=== PATIENT | male | born 1935 | race Caucasian/White ===

== ENCOUNTER 2018-01-03 03:09 | Inpatient (IN) | payer MEDICARE ==
[2018-01-03] MEDS ORDERED: Ondansetron HCl/PF 4 MG/2 ML Vial IVP PRN (05:11)
[2018-01-03] MEDS ORDERED: Milk Of Magnesia 30 ML UDCUP PO PRN (05:11)
[2018-01-03] MEDS ORDERED: Acetaminophen 325 MG TAB PO PRN (05:12)
[2018-01-03 05:32] LABS: Troponin I 0.027 ng/mL (< 0.028)
[2018-01-03 05:35] VITALS: BMI 23.8
--- NOTE | 2018-01-03 07:49 | HP ---
PRIMARY CARE PHYSICIAN: Steffanie . PRESENTING COMPLAINT: Shortness of breath. HISTORY OF PRESENT ILLNESS: An 82-year-old male with a history of viral cardiomyopathy with ejection fraction of about 20%, history of aortic aneurysm status post repair, Johnson's disease, hypertension, and atrial fibrillation who presented to the emergency room with acute onset shortness of breath which started around midnight. He was reading a magazine when he suddenly became short of breath, initially thought it would pass and he went outside to get some fresh air, but symptoms did not improve. He denies chest pain, back pain, palpitations, lower extremity edema, PND or orthopnea. He usually takes 20 mg of furosemide, but states he has not taken it for about 3 days. He also felt some wheezing, but no other symptoms. No abdominal or urinary symptoms. PAST MEDICAL HISTORY: As stated in the HPI. PAST SURGICAL HISTORY: Cholecystectomy, aortic aneurysm repair. FAMILY HISTORY: Reviewed and noncontributory. SOCIAL HISTORY: Does not drink alcohol, smoke cigarettes or use illicit drugs. ALLERGIES: None. HOME MEDICATIONS: Carvedilol 6.25 mg b.i.d., losartan 25 mg daily, terazosin 5 mg daily, Furosemide 20 mg daily. Pantoprazole 40 mg daily. Amiodarone 200 mg daily, aspirin 81 mg daily. REVIEW OF SYSTEMS: CONSTITUTIONAL: Negative. HEENT: Negative. CARDIOVASCULAR: Positive for shortness of breath, otherwise negative. RESPIRATORY: Shortness of breath. Denies cough, sputum production. ABDOMEN: Negative. : Negative. MUSCULOSKELETAL: Negative. SKIN: Negative. NEUROLOGIC: Negative. HEME/LYMPHATIC: Negative. PSYCHIATRIC: Negative. ALLERGY/IMMUNOLOGY: Negative. PHYSICAL EXAMINATION: VITAL SIGNS: Initial vital signs on arrival was blood pressure 180/112 with a pulse rate of 110, respiratory rate of 32, and a temperature of 97.1 degree Fahrenheit. He was satting at 78% on a nonrebreather. GENERAL: Not in acute distress, sitting comfortably in bed. HEENT: Normocephalic, atraumatic. Not pale, anicteric. Moist mucous membranes. PERRLA, EOMI. RESPIRATORY: Reveals bilateral crackles initially at presentation, he had crackles throughout his lungs and increased work of breathing and required a nonrebreather. CARDIOVASCULAR: S1 and S2, only. Regular rate and rhythm. No murmurs, rubs or gallops. ABDOMEN: Soft, nontender, nondistended. Bowel sounds positive. No hepatosplenomegaly. EXTREMITIES: No edema. No muscular or skeletal abnormalities. NEUROLOGIC: Alert and well oriented to time, place and person. No murmurs, rubs or gallops. SKIN: Warm, dry, well-perfused. No rashes or lesions. PSYCHIATRIC: Normal mood and affect. LABORATORY DATA: EKG at presentation shows sinus tachycardia with no signs of acute ischemia. Chest x-ray showed vascular congestion. CBC was largely unremarkable. CMP showed elevated creatinine, unclear if he has a prior history of CKD as previous creatinines were elevated as well. D-dimer was elevated at 1.1. He then had a CTA chest, which was negative for clots, but showed bilateral pleural effusion. ASSESSMENT AND PLAN: 1. Hypertensive emergency. Blood pressure was markedly elevated on arrival, and he had some pulmonary edema. He was started on a nonrebreather and given 1 dose of IV furosemide with marked improvement. We will continue IV diuresis, monitor in the Critical Care Unit and wean off oxygen supplementation. He was also started on IV nitroglycerin which will be eventually weaned off as blood pressure has improved. 2. Congestive heart failure. The patient with reported history of low ejection fraction and has not been compliant with his furosemide which resulted in him being admitted for pulmonary edema. We will continue his home medications of Coreg and losartan as he has been compliant. We will continue IV diuresis. Get Cardiology consult. Monitor his vital signs. We will also consult Cardiology, monitor ins and outs as well. Trend troponin. 3. Hypertension. We will resume his home medications and wean off nitroglycerin drip. 4. Atrial fibrillation. The patient is well controlled and is on aspirin as outpatient. We will continue aspirin and monitor his heart rate. 5. Acute kidney injury, unclear if he has chronic kidney disease as well, but this could be a cardiorenal syndrome. We will monitor creatinine while he is being diuresed. CODE STATUS: FULL CODE. MTDD
--- NOTE | 2018-01-03 08:01 | CT ---
PRELIMINARY REPORT/[facility]/EMERGENCY AFTER HOURS PROCEDURE: EXAM: CT Angiography Chest With Intravenous Contrast EXAM DATE/TIME: Exam ordered 01/03/2018 4:02 AM CLINICAL HISTORY: 82 years old, male; Signs and symptoms; Dyspnea and shortness of breath; Patient HX: 82 yo wm pmh vir al cardiomyopathy. Presents with sudden onset SOB that started while he was reading in bed this eveni ng. states she checked his BP and noted it was 190s/110s. Went to foley er and found BP still elevated. Cxr consistent with pulmonary edema. Started on nitro drip. At time of arrival, patient st ates breathing improved. Pressure resolving TECHNIQUE: Axial computed tomographic angiography images of the chest with intravenous contrast using pulmonary embolism protocol. COMPARISON: No relevant prior studies available. FINDINGS: Pulmonary arteries: Unremarkable. No pulmonary embolism. Aorta: No acute findings. No thoracic aortic aneurysm. Lungs: Smooth interlobular septal thickening compatible with hydrostatic interstitial pulmonary edema /CHF. No mass. Pleural space: Small bilateral pleural effusion. No pneumothorax. Heart: Cardiomegaly. No significant pericardial effusion. No evidence of RV dysfunction. Mediastinum: Esophagus is unremarkable. Bones/joints: No acute fracture. No dislocation. Soft tissues: Unremarkable. Lymph nodes: Unremarkable. No enlarged lymph nodes. IMPRESSION: Hydrostatic interstitial pulmonary edema/CHF with small bilateral pleural effusions. Thank you for allowing us to participate in the care of your patient. Dictated and Authenticated by: Sukhdev Newell MD 01/03/2018 4:36 AM Central Time ([place] & [place]) FINAL REPORT CT ANGIOGRAM CHEST WITH CONTRAST: HISTORY: Dyspnea. Viral cardiomyopathy. Shortness of breath. COMPARISON: CT of the chest 07/11/17. FINDINGS: CT angiogram chest was performed after the intravenous administration of contrast. Three-D rendering is provided. Findings and impression are concordant with the preliminary report. POS: [facility]
[2018-01-03 08:19] LABS: Troponin I 0.033 ng/mL (< 0.028)
[2018-01-03] MEDS ORDERED: Heparin 5,000 UNITS/ML VIAL SC SCH (09:00)
[2018-01-03] MEDS ORDERED: Docusate 100 MG CAP PO SCH (09:00)
[2018-01-03] MEDS ORDERED: Carvedilol 6.25 MG TAB PO SCH (09:00)
--- NOTE | 2018-01-03 11:29 | CON ---
DATE OF CONSULTATION: 01/03/2018 SERVICE: Pulmonary Medicine. REASON FOR CONSULTATION: ICU patient. HISTORY OF PRESENT ILLNESS: The patient is an 82-year-old white male with past medical history significant for taking Lasix. He did not take it on Tuesday, because he went golfing. He did not take on Tuesday, because he went to [place]. He missed his dose on Tuesday morning. Either way, that evening, he went to bed. He was reading a book and felt a little bit short-winded. He thought it was odd. He did not have any infectious prodrome. A couple of hours later, he woke up acutely short of breath. He came to the emergency department, and by the time he got there, he had severe dyspnea. His blood pressures were noted to be elevated. They gave him a dose of Lasix. Overnight, he micturated quite well, and his blood pressure is under much better control. He has been weaned off of oxygen already and feels like he has returned to his usual state of health. Throughout this event, he had no chest discomfort or palpitations. PAST MEDICAL HISTORY: 1. Chronic systolic heart failure with an EF of 20%, secondary to a viral illness. 2. Aortic aneurysm, status post repair. 3. Johnson's disease. 4. Hypertension. 5. Atrial fibrillation. PAST SURGICAL HISTORY: 1. Cholecystectomy. 2. Aortic aneurysm repair. FAMILY HISTORY: Noncontributory. SOCIAL HISTORY: Negative for alcohol, tobacco, or illicit drug use. ALLERGIES: No known drug allergies. MEDICATIONS: List of his home medications and inpatient medications were reviewed. Multiple small updates were made. REVIEW OF SYSTEMS: General, head, ears, eyes, nose, throat, cardiovascular, respiratory, GI, , musculoskeletal, neurologic, and skin is negative except as mentioned in the HPI. PHYSICAL EXAMINATION: VITAL SIGNS: Afebrile, pulse is 67, blood pressure 122/68, respirations 22, saturation 96 on room air. GENERAL: Patient is awake and alert, in no apparent distress. LUNGS: Excellent air entry. Dependent crackles are present with no prolonged expiratory phase, wheezing, or rhonchi. HEART: Normal rate, regular. ABDOMEN: Soft, nontender, nondistended. Bowel sounds are positive. MUSCULOSKELETAL: No cyanosis or clubbing. There is no pitting in the bilateral lower extremities. NEUROLOGIC: Grossly nonfocal. LABORATORY DATA: WBC 6.7, hemoglobin 14.0, platelets 142,000. D-dimer 1.16. PH 7.31, pCO2 of 56, pO2 of 40. Creatinine 1.34. Basic metabolic profile is, otherwise, unremarkable. BNP is elevated at 713, troponin 0.33, and trending upward. Lactate 1.2. IMAGING: CTA of the thorax demonstrates no evidence of a pulmonary embolism. Interstitial pulmonary edema, ground-glass opacifications more predominantly displayed in the dependent regions of the lungs. There are also very small bilateral pleural effusions evident. LV size is enlarged. RV remains small. Left atrium is also generous. Chest x-ray demonstrates interstitial infiltrates throughout bilateral lung frazier. There are some overt consolidating-type changes at the right base. Fluid is in the fissure. Cephalization is noted. ASSESSMENT: 1. Acute hypoxic respiratory failure. 2. Acute on chronic systolic heart failure. 3. Non-ST elevation myocardial infarction. 4. Chronic kidney disease, currently near baseline. DISCUSSION AND PLAN: The patient is really doing well from a respiratory perspective. He is already on room air. We will transition him over to telemetry. From a purely respiratory standpoint, he can go home today if Cardiology signs off on him and his troponin is going down this afternoon. We will repeat a level in roughly 6 hours to make certain the stress on his heart is off. I will give him 1 more dose of Lasix as I am still hearing crackles in the lungs. If he is here tomorrow, I will get a potassium and a magnesium. 70 minutes have been devoted to this patient in various activities. I personally reviewed all imaging studies and laboratory data noted within this document. For fifty percent of this time, I was interacting with the patient at the bedside or coordinating care with the care team. For the remainder of the time I was immediately available to the patient in the hospital unit. NICOLASA
[2018-01-03 13:31] VITALS: TEMP 97.5
--- NOTE | 2018-01-03 13:33 | CON ---
DATE OF CONSULTATION: 01/03/2018 REASON FOR CONSULTATION: Heart failure. HISTORY OF PRESENT ILLNESS: Mr. Whitfield is a pleasant 82-year-old white gentleman who comes to the [facility] for shortness of breath. He has a diagnosis of nonischemic cardiomyopathy. He has a cardiolo gist in [place] who he sees very regularly and is scheduled to see in March of this year. He has an E F of about 20%. He tells me that since his diagnosis of which was a couple years ago, his heart func tion has improved to the point where he was told he did not need a defibrillator or anything of that sort. He has had an aortic aneurysm repaired in the past as well. He came in because he usually alejandro es Lasix every morning. However, for last 3 days before admission, he had to go places so he decided to not take it as he would not be able to be without having to urinate and he had to do this. So af ter the third day, he became so short of breath and he had to come in for evaluation. He was given o ne dose of IV Lasix and he is much better today. He tells me he is back to normal. He is not short of breath. He is not requiring any supplemental oxygenation. PAST MEDICAL HISTORY: 1. Nonischemic cardiomyopathy. 2. Aortic aneurysm status post repair. 3. Johnson's esophagus. 4. Hypertension. 5. History of atrial fibrillation in the past. PAST SURGICAL HISTORY: 1. Cholecystectomy. 2. Aortic aneurysm repair. FAMILY HISTORY: Noncontributory. SOCIAL HISTORY: No alcohol, tobacco or drugs. ALLERGIES: No known drug allergies. OUTPATIENT MEDICATIONS: 1. Carvedilol 6.25 mg b.i.d. 2. Losartan 25 mg a day. 3. Terazosin 5 mg a day. 4. Furosemide 10 mg a day. 5. Pantoprazole 40 mg a day. 6. Amiodarone 200 mg a day. 7. Aspirin 81 a day. REVIEW OF SYSTEMS: A 12 point review of systems was done and is all negative unless stated in the hi story of present illness. PHYSICAL EXAMINATION: VITAL SIGNS: Temperature 97.6, pulse 62, respiratory rate 17, satting 95% on room air, blood pressur e 126/71. GENERAL: Awake, alert and oriented x3, in no distress. HEENT: Normocephalic, atraumatic. NECK: Supple. LUNGS: Lungs are clear. CARDIOVASCULAR: S1, S2, no S3, S4, no murmurs or rubs. ABDOMEN: Soft, positive bowel sounds. EXTREMITIES: No edema. SKIN: Warm and dry. LABORATORY WORK: Reviewed. EKG was reviewed. CT of the thorax was reviewed. ASSESSMENT AND PLAN: 1. Acute on chronic systolic heart failure. 2. Nonischemic cardiomyopathy. 3. History of aortic aneurysm with repair. Plan: 1. He seems euvolemic and well compensated now. He probably is back to baseline and should be able to be discharged home. He will continue taking his 20 p.o. Lasix and he will follow up with his [facility] asphalt plant worker in the next 2 weeks as he will get an appointment sooner than March. 2. He will discuss with them anticoagulation given his atrial fibrillation; however, he has been lashonda d the aspirin alone is what he is going to get. He has discussed it with his asphalt plant worker. Thank you for letting us participate in the care of your patient. We will sign off. Please call kalani moore any questions.
[2018-01-03] MEDS ORDERED: Furosemide 40 MG/4 ML VIAL SLOW IVP SCH (14:00)
--- NOTE | 2018-01-03 14:49 | DIS ---
DATE OF ADMISSION: 01/03/2018 DATE OF DISCHARGE: 01/03/2018 PRIMARY CARE PHYSICIAN: Steffanie Barclay NP. DISCHARGE DIAGNOSES: 1. Hypertensive urgency. 2. Acute shortness of breath. 3. Paroxysmal atrial fibrillation. 4. History of aortic aneurysm. 5. Johnson's esophagus. 6. Hypertension, essential. 7. Nonischemic, viral, cardiomyopathy, ejection fraction around 20%. CONSULTATIONS: 1. Cardiology, Dr. Michael Chew. 2. Pulmonary Critical Care, Dr. Ulysses Gallegos. HOSPITAL COURSE: Mr. Whitfield is an 82-year-old white male with the above history, who presented to [facility] emergency department for shortness of breath. He has been out of his Lasix and had not taken it in a day or two. He had some dyspnea on exertion without PND, orthopnea, lower extremity edema. In [facility] emergency department, he was noted to have blood pressure 180/112 and a pulse of 110. His temperat ure was 97.1. His pulse was 78% on nonrebreather. A chest x-ray, which showed pulmonary vascular co ngestion. We were called for admission. During hospital course, the patient was seen and examined b rosita Stevenson and admitted to the Intermediate Care Unit. He was restarted on IV Lasix. He was con tinued on regular home medications. The patient's blood pressure improved quickly and remained normal from 03/23/2017 until the time of d ischarge. He was seen by Cardiology, cleared for discharge with outpatient followup, recommended continued regu lar medications, seen by Pulmonary Critical Care with the same recommendations. He was stable for discharge with outpatient followup. PHYSICAL EXAMINATION: The patient was seen and examined on the day of discharge. DISCHARGE PLAN AND DISPOSITION: Were discussed with the patient [id number] at the bedside. DISCHARGE MEDICATIONS: 1. Amiodarone 200 mg p.o. daily. 2. Aspirin 81 mg daily. 3. Carvedilol 6.25 mg p.o. b.i.d. 4. Lasix 20 mg daily. 5. Losartan 25 mg daily. 6. Protonix 40 mg daily. 7. Terazosin 5 mg p.o. daily. FOLLOWUP APPOINTMENTS: 1. Primary care physician within a week. 2. Operations Vice President as scheduled. DISCHARGE ACTIVITY: Per cardiopulmonary limits. DISCHARGE DIET: Heart healthy diet recommended. DISCHARGE CONDITION: Stable. DISPOSITION: To be discharged home in a private vehicle.
[2018-01-03 15:19] VITALS: BP 153/73
[2018-01-03] MEDS ORDERED: ISOVUE-370 76%-LOCM 1 ML ONE (16:17)
[2018-01-03] MEDS ORDERED: Terazosin HCl 5 MG CAP PO SCH (21:00)
[2018-01-04] MEDS ORDERED: Losartan 25 MG TAB PO SCH (09:00)
[2018-01-04] MEDS ORDERED: Amiodarone 200 MG TAB PO SCH (09:00)
[2018-01-05] MEDS ORDERED: FLU VACC TS2017-18 (>65YR) 0.5 ML SYRINGE IM ONE (09:00)
== END 2018-01-03 14:41 | disposition home or self-care (01) | DRG 280 ==
LOC: ERS 03:09 → CCU 05:29
PROVIDERS: ADMIT Internal Medicine; ATTEND Internal Medicine
DX: I13.0 Hypertensive heart and chronic kidney disease with heart failure and stage 1 through stage 4 chronic kidney disease, or unspecified chronic kidney disease (principal); J96.01 Acute respiratory failure with hypoxia; I21.4 Non-ST elevation (NSTEMI) myocardial infarction; I50.23 Acute on chronic systolic (congestive) heart failure; I42.8 Other cardiomyopathies; I48.0 Paroxysmal atrial fibrillation; I16.0 Hypertensive urgency; N18.9 Chronic kidney disease, unspecified; Z91.14 Patient's other noncompliance with medication regimen
CPT/HCPCS: 36415; 71275; 93005; 93798; A4216; J1644

== ENCOUNTER 2018-01-10 12:14 | Outpatient (CLI) | payer MEDICARE ==
[2018-01-10 14:33] LABS: Bilirubin Negative (Negative); Blood, Urine Negative (Negative); Clarity CLEAR (Clear); Glucose, Urine (Dipstick) Negative (Negative); Leukocyte Negative (Negative); Nitrite Negative (Negative); Protein, Urine (Dipstick) Negative (Neg-Trace); Specific Gravity, Urine 1.018 (1.002-1.036)
[2018-01-10 14:39] LABS: Prothrombin Time 13.6 SEC (12.0-14.7)
[2018-01-10 14:41] LABS: Bacteria/HPF None Seen HPF (None Seen); Hyaline Casts/LPF 0-3 HYALINE CAST LPF (0-3 Hyaline); Pathc Cast-AUWi Flag 0.13 (0-2.49); RBC/HPF 0-3 HPF (0-3); Squamous Epithelial None Seen HPF (0-3); WBC/HPF None Seen HPF (0-3)
[2018-01-10 14:52] LABS: Anion Gap 12 mmol/L (10-20); BUN (Urea Nitrogen) 29 mg/dL (8.4-25.7); Calc. Creatinine Clearance 0 mL/min (70-130); Calcium 9.4 mg/dL (7.8-10.44); Carbon Dioxide 29 mmol/L (23-31); Chloride 101 mmol/L (98-107); Estimated GFR-MDRD 46; Glucose 94 mg/dL (83-110); Potassium 4.5 mmol/L (3.5-5.1); Sodium 137 mmol/L (136-145)
[2018-01-10 14:55] LABS: Eosinophils 3 % (0-10); Hemoglobin 13.7 g/dL (14.0-18.0); Lymphocytes 41 % (21-51); MDiff Complete? YES; Mean Corpuscular HGB CONC 32.9 g/dL (32.0-36.0); Mean Corpuscular Hemoglobin 32.6 pg (27.0-31.0); Mean Corpuscular Volume 99.2 fl (80.0-94.0); Mean Platelet Volume 10.1 fL (7.4-10.4); Monocytes 10 % (0-10); Neutrophil 45 % (42-75); PLT Morphology Comment Appears Adequate; Platelet Count 156 thou/uL (130-400); RBC Distribution Width 12.6 % (11.5-14.5); Reactive Lymphocytes 1 % (0-10); Red Blood Cell (RBC) Count 4.21 mill/uL (4.70-6.10); White Blood Cell (WBC) Count 5.8 thou/uL (4.8-10.8)
== END 2018-01-10 12:15 | disposition home or self-care (01) ==
LOC: LABBT 12:14
PROVIDERS: ATTEND Orthopaedic Surgery
DX: Z01.818 Encounter for other preprocedural examination (principal); Z01.812 Encounter for preprocedural laboratory examination; M17.12 Unilateral primary osteoarthritis, left knee
CPT/HCPCS: 80048; 81001; 85025; 85610; 86850; 86900; 86901; 87081; 93005; 93010

== ENCOUNTER 2018-01-16 05:27 | Day surgery (SDC) | payer MEDICARE ==
[2018-01-10 12:24] VITALS: BMI 26.4
[2018-01-16] MEDS ORDERED: Fentanyl 100 MCG/2 ML VIAL ONE (06:18)
[2018-01-16] MEDS ORDERED: Midazolam HCl 2 mg/2 ml Vial ONE (06:18)
[2018-01-16] MEDS ORDERED: CEFAZOLIN/Water 2 GM/20 ML SYRINGE ONE (06:23)
[2018-01-16] MEDS ORDERED: Vancomycin HCl 1.5 GM in Sodium Chloride 0.9% 250 ML 300 ML IVPB SCH ×2 (06:30→20:00)
[2018-01-16] MEDS ORDERED: Bupivacaine PF 0.5% 30 ML VIAL ONE (06:52)
[2018-01-16] MEDS ORDERED: Zolpidem Tartrate 5 MG TAB PO PRN ×2 (07:06→07:39)
[2018-01-16] MEDS ORDERED: Promethazine HCl 25 MG/ML VIAL IM PRN ×3 (07:06→09:25)
[2018-01-16] MEDS ORDERED: traMADol HCl 50 MG TAB PO PRN ×3 (07:06→07:39)
[2018-01-16] MEDS ORDERED: Bupivacaine 0.5% 50 ML in Sodium Chloride 0.9% 50 ML NERVE BLCK SCH (07:06)
[2018-01-16] MEDS ORDERED: Ondansetron HCl/PF 4 MG/2 ML Vial IVP PRN ×3 (07:06→09:25)
[2018-01-16] MEDS ORDERED: HYDROcodone/Acetaminophen 5/325 mg Tablet PO PRN ×2 (07:06)
[2018-01-16] MEDS ORDERED: Fentanyl 100 MCG/2 ML VIAL IV PRN (07:07)
[2018-01-16] MEDS ORDERED: HYDROcodone/Acetaminophen 10/325 mg Tablet PO PRN ×2 (07:39)
[2018-01-16] MEDS ORDERED: Acetaminophen 325 MG TAB PO PRN (07:39)
[2018-01-16] MEDS ORDERED: diphenhydrAMINE 25 MG CAP PO PRN (07:39)
[2018-01-16] MEDS ORDERED: Tranexamic Acid 1,000 MG in Sodium Chloride 0.9% 100 ML IVPB SCH (07:45)
[2018-01-16] MEDS ORDERED: Aspirin 81 mg Enteric Coated Tablet PO SCH (09:00)
[2018-01-16] MEDS ORDERED: Carvedilol 6.25 MG TAB PO SCH (09:00)
[2018-01-16] MEDS ORDERED: Losartan 25 MG TAB PO SCH ×2 (09:00→12:36)
[2018-01-16] MEDS ORDERED: Promethazine HCl 25 MG/ML VIAL SLOW IVP PRN (09:25)
--- NOTE | 2018-01-16 09:26 | OP ---
DATE OF PROCEDURE: 01/16/2018 PREOPERATIVE DIAGNOSIS: Left knee osteoarthrosis. POSTOPERATIVE DIAGNOSIS: Left knee osteoarthrosis. PROCEDURE PERFORMED: Left total knee replacement using [employer] pinless navigation. SURGEON: Ulysses Ansari M.D. HVAC CONTROLS TECHNICIAN: Magan Monae PA-C. BLOOD LOSS: Minimal. COMPLICATIONS: None. ANESTHESIA: The patient had general anesthetic as well as preoperative blocks. DISPOSITION: To the recovery room in stable condition. IMPLANTS: To the left knee [employer] Triathlon total knee system, the femur was a size 6 cruciate nargis ining femur, tibial baseplate was a size 6 universal tibial baseplate. We used a 6 x 9 mm CSX3 tibia l bearing and an asymmetric 35 x 10 X3 patella. CONDITION: He did go to the recovery room in stable condition. INDICATIONS: An 82-year-old male who has failed nonoperative treatment and at this time wished to vu ve his knee replaced. PROCEDURE IN DETAIL: After all appropriate consent forms were explained and signed, the patient was taken back to the Operating Room and at this time was given general anesthetic. Once the level of ane sthesia was appropriate, a well-padded tourniquet was placed on the left leg and the leg was then pre pped and draped in standard surgical fashion. The limb was exsanguinated and tourniquet taken up to 3 00 mmHg. Midline incision was made with a 10 blade down through the skin and subcutaneous tissue. Bov ie electrocautery was used to coagulate any brisk venous bleeding. A new blade was used to make a med ial parapatellar arthrotomy. Small subperiosteal release was performed medially and excess fat pad wa s removed. The knee was flexed up to gain access to the femur. The femur was navigated and distal fem oral resection was made. Epicondylar access was used to align our sizing jig and this was pinned in p lace. We sized our femur to be a size 6 cruciate retaining femur 4:1 cutting block was applied and pi nned. Anterior and posterior chamfer cuts were then made. We navigated out our proximal tibia and mad e our proximal tibial resection. Spreaders were used to remove any posterior osteophytes off the back of the femur as well as remaining meniscal tissue. A long alignment zita was then used to achieve cor rect rotation of our tibial baseplate and a size 6 was chosen. This was pinned in place. We trialed t he polyethylene and a 6 x 9 mm CSX3 polyethylene gave us full extension and good stability throughout range of motion. Two towel clips and a saw were used to cut our patella. Three lug nuts were drilled and asymmetric 35 x 10 X3 patella was trialed which sat nicely in the trochlear groove. We then dril led our femur and punched our tibia. All components were removed. The knee was thoroughly irrigated a nd dried. Cement was mixed into the cement gun on the back table. Components were then placed. The kn ee was held out in full extension until the cement had dried. All excess bone cement was removed. Mu ltiple #2 Vicryl stitches as well as a Quill was used to close our extensor mechanism. 0 Quill follow ed by a running Monoderm was then used to close the skin. Surgicel glue was then used on the skin. On ce this had dried, soft tissue dressing was applied to the limb, tourniquet was let down, and the toe s pinked up nicely. The patient was then awakened and taken to the Recovery Room in stable condition . All counts were correct at the end of the case. The patient did receive preoperative IV antibiotics . The patient was injected with Exparel for postoperative pain relief.
[2018-01-16] MEDS: Sodium Chloride 0.9% 1,000 ML IV SCH ×3 (11:24→21:23)
[2018-01-16] MEDS: Amiodarone 200 MG TAB PO SCH (11:24)
[2018-01-16] MEDS: Ferrous Gluconate 324 MG TAB PO SCH ×2 (11:25→21:34)
[2018-01-16] MEDS: Furosemide 20 MG TAB PO SCH (11:25)
[2018-01-16] MEDS: Multivitamin W/ Minerals 1 TAB PO SCH (11:25)
[2018-01-16] MEDS: Aspirin 81 mg Enteric Coated Tablet PO SCH (11:25)
[2018-01-16] MEDS: Senokot S 8.6-50 MG TAB PO SCH ×2 (11:26→21:34)
[2018-01-16] MEDS ORDERED: hydrALAZINE 20 MG/ML VIAL SLOW IVP PRN (12:35)
[2018-01-16] MEDS ORDERED: cloNIDine 0.1 MG TAB PO PRN (12:35)
[2018-01-16] MEDS ORDERED: Famotidine 20 MG TAB PO SCH (12:45)
[2018-01-16] MEDS: CEFAZOLIN/Water 2 GM/20 ML SYRINGE SLOW IVP SCH ×2 (13:17→21:35)
--- NOTE | 2018-01-16 14:37 | PDOC.PN ---
- Subjective Encounter Start Date: 01/16/18 Encounter Start Time: 14:35 Subjective: s/p Left TKR.IM consulted for medical managment. -: Chart reviwed in detail.discussed with pt & -: feels fine. no SOB/CP.no new complaints - Objective MAR Reviewed: Yes Vital Signs & Weight: Vital Signs (12 hours) Temp Pulse Resp BP Pulse Ox 01/16/18 12:00 16 93 L 01/16/18 10:40 97.4 F L 71 18 116/59 L 92 L Weight Weight 190 lb Additional Labs: Laboratory Tests 12/07/12 01/10/18 01/10/18 16:45 13:42 13:42 WBC 5.8 Hgb 13.7 L Hct 41.7 L Plt Count 156 Serum Potassium 4.1 Sodium 137 Potassium 4.5 Chloride 101 BUN 29 H Est GFR (Non-Af Amer) 61 Creatinine 1.47 H Phys Exam - Physical Examination Constitutional: NAD HEENT: PERRLA, moist MMs, sclera anicteric, oral pharynx no lesions Neck: no nodes, no JVD, supple, full ROM Respiratory: no wheezing, no rales, no rhonchi, clear to auscultation bilateral Cardiovascular: RRR, no significant murmur Gastrointestinal: soft, non-tender, no distention, positive bowel sounds Musculoskeletal: no edema, pulses present Neurological: non-focal, normal sensation, moves all 4 limbs Psychiatric: normal affect, A&O x 3 Skin: no rash, normal turgor, cap refill <2 seconds Dx/Plan (1) Chronic systolic CHF (congestive heart failure) Code(s): I50.22 - CHRONIC SYSTOLIC (CONGESTIVE) HEART FAILURE Status: Acute (2) Non-ischemic cardiomyopathy Code(s): I42.8 - OTHER CARDIOMYOPATHIES Status: Acute (3) Chronic atrial fibrillation Code(s): I48.2 - CHRONIC ATRIAL FIBRILLATION Status: Acute (4) H/O aortic aneurysm repair Code(s): Z98.890 - OTHER SPECIFIED POSTPROCEDURAL STATES; Z86.79 - PERSONAL HISTORY OF OTHER DISEASES OF THE CIRCULATORY SYSTEM Status: Acute (5) Status post total knee replacement, left Code(s): Z96.652 - PRESENCE OF LEFT ARTIFICIAL KNEE JOINT Status: Acute (6) HTN (hypertension) Code(s): I10 - ESSENTIAL (PRIMARY) HYPERTENSION Status: Acute - Plan plan discussed w/ family, PT/OT, out of bed/ambulate, DVT proph w/SCDs Home meds reviewed. parameters added for BP meds as BP on lower side -: cont lasix.euvolemic for now -: cont ASA,BB,ARB.cont amiodarone.NSR for now -: AM labs.monitor renal function. -: Add Pepcid for GI prophylaxis.ASA BID for DVT prophylaxis. * . Review of Systems - Review of Systems Constitutional: negative: fever, chills, sweats, weakness, malaise, other Eyes: negative: Pain, Vision Change, Conjunctivae Inflammation, Eyelid Inflammation, Redness, Other ENT: negative: Ear Pain, Ear Discharge, Nose Pain, Nose Discharge, Nose Congestion, Mouth Pain, Mouth Swelling, Throat Pain, Throat Swelling, Other Respiratory: negative: Cough, Dry, Shortness of Breath, Hemoptysis, SOB with Excertion, Pleuritic Pain, Sputum, Wheezing Cardiovascular: negative: chest pain, palpitations, orthopnea, paroxysmal nocturnal dyspnea, edema, light headedness, other Gastrointestinal: negative: Nausea, Vomiting, Abdominal Pain, Diarrhea, Constipation, Melena, Hematochezia, Other Genitourinary: negative: Dysuria, Frequency, Incontinence, Hematuria, Retention , Other Musculoskeletal: negative: Neck Pain, Shoulder Pain, Arm Pain, Back Pain, Hand Pain, Leg Pain, Foot Pain, Other Skin: negative: Rash, Lesions, Johnny, Bruising, Other Neurological: negative: Weakness, Numbness, Incoordination, Change in Speech, Confusion, Seizures, Other - Medications/Allergies Allergies/Adverse Reactions: Allergies Allergy/AdvReac Type Severity Reaction Status Date / Time warfarin [From Coumadin] Allergy Verified 01/10/18 12:25 Medications: Current Medications Acetaminophen (Tylenol) 650 mg PO Q4H PRN PRN Reason: [place]/ T > 101F; Mild Pain (1-3) Hydrocodone Bitart/Acetaminophen ([place] 5/325) 1 tab PO Q4H PRN PRN Reason: Mild Pain (1-3) Hydrocodone Bitart/Acetaminophen ([place] 5/325) 2 tab PO Q4H PRN PRN Reason: For Moderate Pain 4-6 Amiodarone HCl (Cordarone) 200 mg PO DAILY [facility] Last Admin: 01/16/18 11:24 Dose: Not Given Aspirin (Ecotrin) 81 mg PO DAILY [facility] Last Admin: 01/16/18 11:25 Dose: Not Given Carvedilol (Coreg) 6.25 mg PO BID [facility] Cefazolin Sodium (Ancef) 2 gm SLOW IVP Q8HR [facility] Stop: 01/16/18 22:01 Last Admin: 01/16/18 13:17 Dose: 2 gm Clonidine (Catapres) 0.1 mg PO Q4H PRN PRN Reason: SBP>160 Diphenhydramine HCl (Benadryl) 25 mg PO Q6H PRN PRN Reason: Itching Famotidine (Pepcid) 20 mg PO BID [facility] Fentanyl (Sublimaze) 50 mcg IV Q1H PRN PRN Reason: BT PAIN Ferrous Gluconate (Fergon) 324 mg PO BID [facility] Last Admin: 01/16/18 11:25 Dose: Not Given Furosemide (Lasix) 20 mg PO DAILY [facility] Last Admin: 01/16/18 11:25 Dose: Not Given Hydralazine HCl (Apresoline) 10 mg SLOW IVP Q4H PRN PRN Reason: SBP>170 Bupivacaine HCl 50 ml/ Sodium (Chloride) 100 mls @ 0 mls/hr NERVE BLCK INF [facility] PRN Reason: As Directed Sodium Chloride (Normal Saline 0.9%) 1,000 mls @ 100 mls/hr IV .Q10H [facility] Last Admin: 01/16/18 11:24 Dose: 1,000 mls Tranexamic Acid 1,000 mg/ (Sodium Chloride) 110 mls @ 200 mls/hr IVPB ONE [facility] Stop: 01/16/18 23:00 Vancomycin HCl 1.5 gm/ Sodium (Chloride) 300 mls @ 200 mls/hr IVPB ONE [facility] Stop: 01/16/18 23:00 Iron/Minerals/Multivitamins (Theragran M) 1 tab PO DAILY [facility] Last Admin: 01/16/18 11:25 Dose: Not Given Losartan Potassium (Cozaar) 25 mg PO DAILY [facility] Ondansetron HCl (Zofran) 4 mg IVP Q6H PRN PRN Reason: Nausea/Vomiting Pantoprazole Sodium (Protonix) 40 mg PO DAILY [facility] Last Admin: 01/16/18 11:25 Dose: Not Given Promethazine HCl (Phenergan) 12.5 mg IM Q4H PRN PRN Reason: Nausea/Vomiting Senna/Docusate Sodium (Senokot S) 2 tab PO BID [facility] Last Admin: 01/16/18 11:26 Dose: Not Given Sodium Chloride (Flush - Normal Saline) 10 ml IVF PRN PRN PRN Reason: Saline Flush Terazosin HCl (Hytrin) 5 mg PO HS [facility] Tramadol HCl (Ultram) 50 mg PO Q6H PRN PRN Reason: Mild Pain (1-3) Tramadol HCl (Ultram) 100 mg PO Q6H PRN PRN Reason: Moderate Pain 4-6 Zolpidem Tartrate (Ambien) 5 mg PO HSPRN PRN PRN Reason: Insomnia
[2018-01-16] MEDS ORDERED: Bupivacaine/Epinephrine 0.25% 30 ML VIAL ONE (15:31)
[2018-01-16] MEDS ORDERED: Bupivacaine HCl 0.5%/Epinephrine 1:200,000/PF 30 ml Vial ONE (15:31)
[2018-01-16] MEDS ORDERED: Propofol 200 MG/20 ML VIAL ONE (16:18)
[2018-01-16] MEDS ORDERED: Dexamethasone 20 MG/5 ML VIAL ONE (16:18)
[2018-01-16] MEDS ORDERED: ePHEDrine/0.9% NaCl/PF SYRINGE 50 mg/10 ml ONE (16:18)
[2018-01-16] MEDS ORDERED: Ondansetron HCl/PF 4 MG/2 ML Vial ONE (16:18)
[2018-01-16] MEDS ORDERED: PHENYLEPHRINE-NS 100 MCG/ML 10 ML SYRINGE ONE (16:18)
[2018-01-16] MEDS ORDERED: Terazosin HCl 5 MG CAP PO SCH (21:00)
[2018-01-16] MEDS: Carvedilol 6.25 MG TAB PO SCH (21:33)
[2018-01-16] MEDS: Famotidine 20 MG TAB PO SCH (21:34)
[2018-01-17 06:24] LABS: ALT (SGPT) 12 U/L (8-55); AST (SGOT) 15 U/L (5-34); Albumin 3.4 g/dL (3.4-4.8); Alkaline Phosphatase 75 U/L (40-150); Anion Gap 9 mmol/L (10-20); BUN (Urea Nitrogen) 18 mg/dL (8.4-25.7); Bilirubin, Total 0.5 mg/dL (0.2-1.2); Calc. Creatinine Clearance 65 mL/min (70-130); Calcium 8.3 mg/dL (7.8-10.44); Carbon Dioxide 28 mmol/L (23-31); Chloride 105 mmol/L (98-107); Estimated GFR-MDRD 64; Globulin 2.3 g/dL (2.4-3.5); Glucose 123 mg/dL (83-110); Potassium 4.4 mmol/L (3.5-5.1); Protein, Total 5.7 g/dL (5.8-8.1); Sodium 138 mmol/L (136-145)
[2018-01-17 06:30] LABS: #Monocytes 1.2 thou/uL (0.11-0.59); #Neutrophils 8.8 thou/uL (1.40-6.50); %Basophils 0.1 % (0.0-1.0); %Eosinophils 0.1 % (0.0-10.0); %Lymphocytes 9.1 % (21.0-51.0); %Monocytes 10.8 % (0.0-10.0); Hemoglobin 10.7 g/dL (14.0-18.0); Mean Corpuscular HGB CONC 32.8 g/dL (32.0-36.0); Mean Corpuscular Hemoglobin 31.7 pg (27.0-31.0); Mean Corpuscular Volume 96.6 fl (80.0-94.0); Mean Platelet Volume 9.6 fL (7.4-10.4); PLT Morphology Comment Appears Decreased; Platelet Count 111 thou/uL (130-400); RBC Distribution Width 12.3 % (11.5-14.5); Red Blood Cell (RBC) Count 3.37 mill/uL (4.70-6.10)
[2018-01-17] MEDS: Ferrous Gluconate 324 MG TAB PO SCH (07:57)
[2018-01-17] MEDS: Furosemide 20 MG TAB PO SCH (07:57)
[2018-01-17] MEDS: Aspirin 81 mg Enteric Coated Tablet PO SCH (07:58)
[2018-01-17] MEDS: Carvedilol 6.25 MG TAB PO SCH (07:58)
[2018-01-17] MEDS: Amiodarone 200 MG TAB PO SCH (07:59)
[2018-01-17] MEDS: Famotidine 20 MG TAB PO SCH (07:59)
[2018-01-17] MEDS: Senokot S 8.6-50 MG TAB PO SCH (08:00)
[2018-01-17] MEDS: Multivitamin W/ Minerals 1 TAB PO SCH (08:00)
[2018-01-17] MEDS ORDERED: Furosemide 40 MG/4 ML VIAL SLOW IVP SCH (09:45)
[2018-01-17 10:31] LABS: Iron 72 ug/dL (65-175); Iron Binding Capacity, Total 300 mcg/dL (261-462)
[2018-01-17 11:03] LABS: Folate (Folic Acid) 10.6 ng/mL (7.0-31.4)
[2018-01-17] MEDS: Sodium Chloride 0.9% 1,000 ML IV SCH (11:05)
[2018-01-17 11:26] VITALS: BP 120/52; TEMP 97.9
--- NOTE | 2018-01-17 13:12 | PDOC.PN ---
- Subjective Encounter Start Date: 01/17/18 Encounter Start Time: 13:11 Subjective: feels great. no SOB/CP - Objective MAR Reviewed: Yes Vital Signs & Weight: Vital Signs (12 hours) Temp Pulse Resp BP Pulse Ox 01/17/18 11:26 97.9 F 75 18 120/52 L 95 01/17/18 08:00 98.5 F 80 18 01/17/18 07:50 98.5 F 80 18 115/62 93 L 01/17/18 04:11 97.7 F 74 18 119/70 94 L Weight Admit Weight 190 lb Weight 190 lb I&O: 01/16/18 01/17/18 01/18/18 06:59 06:59 06:59 Intake Total 2576 Output Total 700 Balance 1876 Result Diagrams: 01/17/18 05:16 01/17/18 05:16 Additional Labs: Laboratory Tests 01/03/18 01/03/18 01/10/18 01:15 01:15 13:42 Hgb 14.0 Creatinine 1.47 H Iron TIBC % Saturation B-Natriuretic Peptide 713.9 H Vitamin B12 Folate 01/10/18 01/17/18 01/17/18 13:42 05:16 05:16 Hgb 13.7 L Creatinine 1.11 Iron TIBC % Saturation B-Natriuretic Peptide 886.5 H Vitamin B12 Folate 01/17/18 01/17/18 01/17/18 05:16 09:57 09:57 Hgb 10.7 L Creatinine Iron 72 TIBC 300 % Saturation 24 B-Natriuretic Peptide Vitamin B12 551 Folate 10.60 Phys Exam - Physical Examination Constitutional: NAD HEENT: PERRLA, moist MMs, sclera anicteric, oral pharynx no lesions Neck: no nodes, no JVD, supple, full ROM Respiratory: no wheezing, no rales, no rhonchi, clear to auscultation bilateral Cardiovascular: RRR, no significant murmur, no rub, gallop, irregular Gastrointestinal: soft, non-tender, no distention, positive bowel sounds Musculoskeletal: no edema, pulses present Neurological: non-focal, normal sensation, moves all 4 limbs Psychiatric: normal affect, A&O x 3 Skin: no rash Dx/Plan (1) Chronic systolic CHF (congestive heart failure) Code(s): I50.22 - CHRONIC SYSTOLIC (CONGESTIVE) HEART FAILURE Status: Acute (2) Non-ischemic cardiomyopathy Code(s): I42.8 - OTHER CARDIOMYOPATHIES Status: Acute (3) Chronic atrial fibrillation Code(s): I48.2 - CHRONIC ATRIAL FIBRILLATION Status: Acute (4) H/O aortic aneurysm repair Code(s): Z98.890 - OTHER SPECIFIED POSTPROCEDURAL STATES; Z86.79 - PERSONAL HISTORY OF OTHER DISEASES OF THE CIRCULATORY SYSTEM Status: Acute (5) Status post total knee replacement, left Code(s): Z96.652 - PRESENCE OF LEFT ARTIFICIAL KNEE JOINT Status: Acute (6) HTN (hypertension) Code(s): I10 - ESSENTIAL (PRIMARY) HYPERTENSION Status: Acute - Plan DVT proph w/SCDs BNP higher. 1 dose lasix .no symptoms at all -: Hb drop noted .likley dilutional and post-surgical. -: Iron and FA/B12 normal.OP follow up -: OK to DC from IM stand point * . Review of Systems - Review of Systems Constitutional: negative: fever, chills, sweats, weakness, malaise, other Eyes: negative: Pain, Vision Change, Conjunctivae Inflammation, Eyelid Inflammation, Redness, Other ENT: negative: Ear Pain, Ear Discharge, Nose Pain, Nose Discharge, Nose Congestion, Mouth Pain, Mouth Swelling, Throat Pain, Throat Swelling, Other Respiratory: negative: Cough, Dry, Shortness of Breath, Hemoptysis, SOB with Excertion, Pleuritic Pain, Sputum, Wheezing Cardiovascular: negative: chest pain, palpitations, orthopnea, paroxysmal nocturnal dyspnea, edema, light headedness, other Gastrointestinal: negative: Nausea, Vomiting, Abdominal Pain, Diarrhea, Constipation, Melena, Hematochezia, Other Genitourinary: negative: Dysuria, Frequency, Incontinence, Hematuria, Retention , Other Musculoskeletal: negative: Neck Pain, Shoulder Pain, Arm Pain, Back Pain, Hand Pain, Leg Pain, Foot Pain, Other Skin: negative: Rash, Lesions, Johnny, Bruising, Other Neurological: negative: Weakness, Numbness, Incoordination, Change in Speech, Confusion, Seizures, Other - Medications/Allergies Allergies/Adverse Reactions: Allergies Allergy/AdvReac Type Severity Reaction Status Date / Time warfarin [From Coumadin] Allergy Verified 01/10/18 12:25 Medications: Current Medications Acetaminophen (Tylenol) 650 mg PO Q4H PRN PRN Reason: [place]/ T > 101F; Mild Pain (1-3) Hydrocodone Bitart/Acetaminophen ([place] 5/325) 1 tab PO Q4H PRN PRN Reason: Mild Pain (1-3) Hydrocodone Bitart/Acetaminophen ([place] 5/325) 2 tab PO Q4H PRN PRN Reason: For Moderate Pain 4-6 Last Admin: 01/17/18 08:00 Dose: 2 tab Amiodarone HCl (Cordarone) 200 mg PO DAILY [facility] Last Admin: 01/17/18 07:59 Dose: 200 mg Aspirin (Ecotrin) 81 mg PO DAILY [facility] Last Admin: 01/17/18 07:58 Dose: 81 mg Carvedilol (Coreg) 6.25 mg PO BID [facility] Last Admin: 01/17/18 07:58 Dose: 6.25 mg Clonidine (Catapres) 0.1 mg PO Q4H PRN PRN Reason: SBP>160 Diphenhydramine HCl (Benadryl) 25 mg PO Q6H PRN PRN Reason: Itching Famotidine (Pepcid) 20 mg PO BID [facility] Last Admin: 01/17/18 07:59 Dose: 20 mg Fentanyl (Sublimaze) 50 mcg IV Q1H PRN PRN Reason: BT PAIN Ferrous Gluconate (Fergon) 324 mg PO BID [facility] Last Admin: 01/17/18 07:57 Dose: 324 mg Furosemide (Lasix) 20 mg PO DAILY [facility] Last Admin: 01/17/18 07:57 Dose: 20 mg Hydralazine HCl (Apresoline) 10 mg SLOW IVP Q4H PRN PRN Reason: SBP>170 Bupivacaine HCl 50 ml/ Sodium (Chloride) 100 mls @ 0 mls/hr NERVE BLCK INF [facility] PRN Reason: As Directed Sodium Chloride (Normal Saline 0.9%) 1,000 mls @ 100 mls/hr IV .Q10H [facility] Last Admin: 01/17/18 11:05 Dose: Not Given Iron/Minerals/Multivitamins (Theragran M) 1 tab PO DAILY [facility] Last Admin: 01/17/18 08:00 Dose: 1 tab Losartan Potassium (Cozaar) 25 mg PO DAILY [facility] Last Admin: 01/17/18 07:57 Dose: 25 mg Ondansetron HCl (Zofran) 4 mg IVP Q6H PRN PRN Reason: Nausea/Vomiting Pantoprazole Sodium (Protonix) 40 mg PO DAILY [facility] Last Admin: 01/17/18 07:57 Dose: 40 mg Promethazine HCl (Phenergan) 12.5 mg IM Q4H PRN PRN Reason: Nausea/Vomiting Senna/Docusate Sodium (Senokot S) 2 tab PO BID [facility] Last Admin: 01/17/18 08:00 Dose: 2 tab Sodium Chloride (Flush - Normal Saline) 10 ml IVF PRN PRN PRN Reason: Saline Flush Terazosin HCl (Hytrin) 5 mg PO HS [facility] Last Admin: 01/16/18 21:35 Dose: 5 mg Tramadol HCl (Ultram) 50 mg PO Q6H PRN PRN Reason: Mild Pain (1-3) Tramadol HCl (Ultram) 100 mg PO Q6H PRN PRN Reason: Moderate Pain 4-6 Zolpidem Tartrate (Ambien) 5 mg PO HSPRN PRN PRN Reason: Insomnia
[2018-01-17] MEDS ORDERED: Ropivacaine 0.2% 550 ML 550 ML NERVE BLCK SCH (15:20)
== END 2018-01-17 16:00 | disposition home or self-care (01) ==
LOC: SDC 05:27 → SJJU 07:46 → SDC 01-17 16:00
PROVIDERS: ATTEND Orthopaedic Surgery
PROC: 0SRD0J9 Replacement of Left Knee Joint with Synthetic Substitute, Cemented, Open Approach (ICD-10-PCS; principal; 2018-01-16)
DX: M17.12 Unilateral primary osteoarthritis, left knee (principal); I42.8 Other cardiomyopathies; I48.2 Chronic atrial fibrillation; I11.0 Hypertensive heart disease with heart failure; I50.22 Chronic systolic (congestive) heart failure; Z79.82 Long term (current) use of aspirin; Z79.899 Other long term (current) drug therapy; Z88.8 Allergy status to other drugs, medicaments and biological substances; Z96.651 Presence of right artificial knee joint
CPT/HCPCS: 27447; 80053; 82607; 82746; 83540; 83550; 83880; 85025; 97116 ×2; 97139; 97150; 97530; A4306; C1713; C1776; G8978; G8979; 36415; J0670; J1100; J1940; J2250; J2405; J2704; J2795; J3010; J3370; J3490; J7050; S0020

== ENCOUNTER 2019-07-17 11:16 | Emergency (ER) | payer MEDICARE | END 2019-07-17 12:30 | disposition home or self-care (01) | LOC: ERS 11:16 | DX: B02.9 Zoster without complications (principal); E78.5 Hyperlipidemia, unspecified; I11.0 Hypertensive heart disease with heart failure; I50.9 Heart failure, unspecified; Z79.82 Long term (current) use of aspirin; Z79.891 Long term (current) use of opiate analgesic; Z79.899 Other long term (current) drug therapy | CPT/HCPCS: 99283 ==